=== PATIENT | female | born 1940 | race Caucasian/White ===

== ENCOUNTER → 2021-07-14 | Outpatient (CLI) | payer OTHER ==
--- NOTE | 2021-07-14 15:57 | RAD ---
Examination: Left Lower Extremity Venous Doppler Ultrasound History: Left leg pain, swelling Comparison: None Procedure: Urbio scale, color flow 2D and spectal waveform analysis images are obtained with and witho ut compression in the area of the common femoral vein, superficial femoral vein - femoral vein juncti on, main femoral vein (superficial femoral vein) and popliteal vein. Veins of the proximal calf are a lso imaged. Findings: There is normal duplex flow, color flow and compressibility of all visualized vein segments. No evide nce of deep venous thrombus is present. Mild soft tissue edema identified in the left lower leg. Impression: 1. No evidence of DVT. 2. Soft tissue edema left lower leg. Electronically signed by: Jay Valdivia MD (07/14/2021 3:55 PM) [id number]
== END ==
LOC: US 14:52
PROVIDERS: ATTEND Orthopaedic Surgery
DX: M79.604 Pain in right leg (principal); M79.89 Other specified soft tissue disorders; Z96.652 Presence of left artificial knee joint
CPT/HCPCS: 93971

== ENCOUNTER → 2021-08-02 | Outpatient (CLI) | payer OTHER ==
--- NOTE | 2021-08-02 16:58 | RAD ---
XR KNEE_AP BILAT STANDING, XR KNEE_LT 1-2 VIEWS History: Reason: left knee pain / Spl. Instructions: / History: Technique: AP view bilateral knees and 2 additional views of the left knee. Comparison: None. Findings: Left total knee arthroplasty. No dislocation. No acute fracture. Vascular calcifications. Right knee mild to moderate degenerative changes most prominent in the lateral compartment. Chondroca lcinosis. Vascular calcination indications. Impression: 1. Left total knee arthroplasty. 2. 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 Electronically signed by: Rod Camara DO (08/02/2021 4:56 PM) [id number]
== END ==
LOC: RAD 14:50
PROVIDERS: ATTEND Physician Assistant
DX: M17.11 Unilateral primary osteoarthritis, right knee (principal); M11.261 Other chondrocalcinosis, right knee; Z96.652 Presence of left artificial knee joint
CPT/HCPCS: 73560; 73565